=== PATIENT | male | born 1940 | race Caucasian/White ===

== ENCOUNTER 2018-07-18 18:01 | Emergency (ER) | payer MEDICARE, BC ==
[2018-07-18] MEDS ORDERED: ONDANSETRON HCL 4 MG/2 ML SOL IV ONE (18:31)
[2018-07-18] MEDS ORDERED: ONDANSETRON HCL 4 MG/2 ML SOL ONE (18:33)
[2018-07-18] MEDS ORDERED: SODIUM CHLORIDE 0.9% 1000ML 1,000 ML IV ONE ×3 (18:35→20:20)
[2018-07-18 18:53] LABS: BASOPHILS % (AUTO) 1 % (0-3); EOSINOPHILS % (AUTO) 4 % (0-9); HEMATOCRIT 37 % (39-53); HEMOGLOBIN 12.2 gm/dl (13.5-17.7); LYMPHOCYTES % (AUTO) 36.5 % (10-50); MEAN CORPUSCULAR HEMOGLOBIN 29.9 pg (27.0-32.0); MEAN CORPUSCULAR HGB CONC 33.2 gm/dl (32.0-36.0); MEAN CORPUSCULAR VOLUME 90 fL (80-100); MONOCYTES % (AUTO) 7.9 % (0-12); NEUTROPHILS % (AUTO) 50.6 % (37-80)
[2018-07-18 19:02] LABS: CALCIUM 8.3 mg/dl (8.5-10.1); CARBON DIOXIDE 27.5 mEq/L (21-32); CREATININE 1.37 mg/dl (0.80-1.30); POTASSIUM 3.2 mMol/L (3.5-5.1)
[2018-07-18 19:10] VITALS: TEMP 96.5
[2018-07-18] MEDS ORDERED: NALOXONE HYDROCHLORIDE 0.4 MG/ML SOL IV ONE (19:11)
[2018-07-18] MEDS ORDERED: NALOXONE HYDROCHLORIDE 0.4 MG/ML SOL ONE (19:15)
[2018-07-18 19:34] LABS: ALBUMIN 2.9 gm/dl (3.4-5.0); ALKALINE PHOSPHATASE 61 IU/L (46-116); ALT 21 IU/L (14-63); AST 15 IU/L (15-37); BILIRUBIN,DIRECT 0.1 mg/dl (0.0-0.2); BILIRUBIN,TOTAL 0.6 mg/dl (0.2-1.0); TROP I < 0.017 ng/ml (0.000-0.056)
[2018-07-18 19:38] LABS: ALCOHOL 0.009 gm/dl (0.000-0.08)
[2018-07-18] MEDS ORDERED: POTASSIUM CHLORIDE 10 MEQ TER PO ONE (19:50)
[2018-07-18] MEDS ORDERED: POTASSIUM CHLORIDE 10 MEQ TER ONE (20:22)
[2018-07-18 21:11] LABS: APPEARANCE,URINE Clear; BILIRUBIN,URINE NEGATIVE (NEGATIVE); COLOR,URINE Yellow; GLUCOSE, URINE (UA) NEGATIVE (NEGATIVE); KETONES,URINE NEGATIVE (NEGATIVE); LEUKOCYTE ESTERASE ,URINE NEGATIVE (NEGATIVE); NITRATE,URINE NEGATIVE (NEGATIVE); OCCULT BLOOD,URINE TRACE INTACT (NEG-TRACE); PH,URINE 7.5; UROBILINOGEN,URINE 0.2 (0.2-1.0 EU)
[2018-07-18 21:27] LABS: RBC,URINE NEG (0-3AV/HPF)
[2018-07-18 21:28] LABS: AMPHETAMINES NEGATIVE (NEGATIVE); BACTERIA NEGATIVE (< 1+); BARBITUATES NEGATIVE (NEGATIVE); BENZODIAZEPINES NEGATIVE (NEGATIVE); CANNABINOL(THC) POSITIVE (NEGATIVE); COCAINE(COC) NEGATIVE (NEGATIVE); CRYSTALS NEGATIVE (0-3 AVE/HPF); EPITHELIAL CELLS NEGATIVE (SQUAMOUS); METHADONE NEGATIVE (NEGATIVE); METHAMPHETAMINES NEGATIVE (NEGATIVE); OPIATES(OPI) POSITIVE (NEGATIVE); OXYCODONE(OXY) NEGATIVE (NEGATIVE); PROPOXYPHENE(PPX) NEGATIVE (NEGATIVE); TRICYCLIC ANTIDEPRESSANTS NEGATIVE (NEGATIVE); WBC,URINE 0-1 (0-5AV/HPF)
[2018-07-18 23:48] VITALS: BP 143/83; PULSE 74; RESP 16; O2SAT 96
== END 2018-07-18 21:50 | disposition home or self-care (01) | DRG 312 ==
LOC: ED 18:01
DX: R55 Syncope and collapse (principal); E87.6 Hypokalemia; E86.0 Dehydration
CPT/HCPCS: 36415; 70450; 80048; 80076; 80305; 80307; 81001; 83735; 84484; 85025; 93005; 96365; 96366; 96374; 96375; 99284; 99285; J2310; J2405; A9270-GY